=== PATIENT | female | born 1950 | race Caucasian/White ===

== ENCOUNTER 2020-06-18 17:52 | Emergency (ER) | payer MEDICARE, SELFPAY ==
[2020-06-18 18:10] VITALS: BP 114/70; PULSE 87; RESP 20; TEMP 36.1; O2SAT 98; BMI 36.8
--- NOTE | 2020-06-18 19:54 | CT_ITS ---
EXAMINATION: CT ABDOMEN AND PELVIS WITHOUT CONTRAST CLINICAL INFORMATION: Left-sided abdominal pain COMPARISON: CT abdomen pelvis 03/29/2020 TECHNIQUE: Multidetector volumetric imaging was performed from the superior aspect of the liver through the pubic symphysis. Sagittal and coronal reformatted images were obtained on the technologist's workstation. This CT examination was performed using dose optimization techniques as appropriate, variously including the following: *Automated exposure control *Adjustment of mA and/or kV according to patient size (this includes techniques or standardized protocols for targeted exams where dose is matched to indication/reason for exam; i.e. extremities or head) *Use of iterative reconstruction technique DLP: 831 mGy-cm FINDINGS: LUNG BASES: The visualized lung bases are unremarkable. There is a large hiatal hernia LIVER, GALLBLADDER, AND BILIARY TREE: The liver is normal in size, shape, and attenuation. No focal hepatic lesion or biliary ductal dilatation is present. The gallbladder is unremarkable with no evidence of radiopaque gallstones, gallbladder wall thickening, or obvious pericholecystic inflammatory changes. PANCREAS: Unremarkable. SPLEEN: Unremarkable. ADRENAL GLANDS: Unremarkable. KIDNEYS AND URETERS: The kidneys are normal in size, shape, and attenuation. No hydronephrosis, hydroureter, or calculi seen. No perinephric stranding. 1.5 cm cortical cyst lower pole left kidney BLADDER: Unremarkable. GASTROINTESTINAL TRACT: There are scattered diverticula of the colon. There is no diverticulitis. There is no bowel wall thickening /edema. There is no bowel obstruction. There is a moderate to large volume of stool in the colon. The appendix is normal . The small bowel loops are unremarkable. There is a large hiatal hernia. ABDOMINAL WALL: No significant hernia is appreciated. LYMPH NODES: Normal. VASCULAR: Atherosclerotic vascular calcifications of aorta and iliac arteries. PELVIC VISCERA: The pelvis is obscured by streak artifact from bilateral. OSSEOUS STRUCTURES: Bilateral hip replacement. Multilevel degenerative spondylosis of the spine. CT/CT abdomen pelvis wo con IMPRESSION: No acute abnormality CT scan abdomen pelvis.
[2020-06-18 20:00] VITALS: BP 127/72; PULSE 64; RESP 18; TEMP 36.9; O2SAT 96
--- NOTE | 2020-06-18 20:05 | ED_ITS ---
HPI - Abdominal Pain General Chief Complaint: Abdominal Pain Stated Complaint: vomiting ,abdominal pain Time Seen by Provider: 06/18/20 19:54 Source: patient Mode of arrival: ambulatory Limitations: no limitations History of Present Illness HPI narrative: This is a 70-year-old female with chronic history of left-sided abdominal pain, patient had a recent colonoscopy by Dr. Doshi which showed colonic polyps, patient stated that the pain is progressively getting worse over the last 2 days patient is unable to eat solid foods feel is not passing through her left side of her colon and patient reported had multiple episodes of vomiting. Patient had recent colonoscopy in March 01 of this year, patient also had upper endoscopy earlier this year which is consistent with hiatal hernia. Patient describes the pain as constant with fluctuation wax in wean pattern, describe it as a pressure on her left side of her abdomen, food making it worse, nothing relieves the pain except not eating, pain has no radiation, described it as moderate at 5/10, associated sometimes with vomiting. Related Data Previous Rx's Medication Instructions Recorded ondansetron HCl [Zofran] 4 mg PO Q8H PRN #10 tab 06/18/20 Allergies Allergy/AdvReac Type Severity Reaction Status Date / Time Digitalis Glycosides Allergy Severe HYPOTENSION Verified 06/18/20 20:32 [DIGITALIS GLYCOSIDES] oxycodone [OXYCODONE] Allergy Severe SEVERE Verified 06/18/20 20:32 VOMITING latex [LATEX] Allergy Intermediate RASH Verified 06/18/20 20:32 Review of Systems Review of Systems All other systems are reviewed and are negative Constitutional: Reports as per HPI and Reports no additional constitutional complaints Eyes: Reports as per HPI and Reports no additional eye complaints Reports system reviewed and no additional complaints, except as documented Cardiovascular: Reports as per HPI and Reports no additional cardiovascular complaints Respiratory: Reports as per HPI and Reports no additional respiratory complaints Gastrointestinal: Reports as per HPI and Reports no additional gastrointestinal complaints Genitourinary: Reports no additional female genitourinary complaints Musculoskeletal: Reports no additional musculoskeletal complaints Skin/Breast: Reports system reviewed and no additional complaints, except as docu Psychiatric: Reports no additional psychiatric complaints Endocrine: Reports no additional endocrine complaints Hematologic/Lymphatic: Reports no additional hematologic/lymphatic complaints Allergic/Immunologic: Reports no additional allergic/immunologic complaints Reports system reviewed and no additional complaints, except as documented and Reports Abnormal speech present Physical Exam Vital Signs: Vital Signs: Last Vital Signs Temp 98.4 F 06/18/20 20:00 Pulse 64 06/18/20 20:00 Resp 18 06/18/20 20:00 BP 127/72 06/18/20 20:00 Pulse Ox 96 06/18/20 20:00 Body Mass Index 36.8 Vital signs have been reviewed as normal and appeared to be correct. Blood pressure normal. Heart rate normal. Respiration rate normal. Temperature normal. Oxygen saturation normal. Appearance: Alert. Oriented X3. No acute distress. Head: Normal external exam. Normocephalic. Atraumatic. No Bailey signs noted. No raccoon eyes noted Eyes: PERRLA. EOMI. Conjunctiva and sclera normal. Eyelids normal. ENT: EAC normal. TM's Normal. Pharynx normal. Uvula midline. Moist mucous membranes. No trismus noted. No drooling noted. No muffled voice noted. Neck: Normal inspection. Neck supple. FROM. No adenopathy. Thyroid Normal. No meningeal signs. No neck mass noted. CVS: Normal heart rate and rhythm. Heart sound normal. No murmurs noted. Pulses normal throughout. Respiratory: No respiratory distress. Painless inspiration. Breath sounds normal. No wheezes/rales/rhonchi noted. Chest nontender. No accessory muscle usage noted or decreased air movement noted. Abdomen: Soft and nontender. Bowel sounds normal in all 4 quadrants. No distention noted. No organomegaly noted. No visible injury noted. Back: No CVA tenderness. Full range of motion noted. Skin: Skin warm and dry. Normal skin color. Normal skin turgor. No rashes/lesions/lacerations noted. Extremities: No lower extremity edema. Extremities exhibit normal range of motion. Extremities nontender. Neuro: Oriented X 3. No motor deficit. No sensory deficit. Reflexes normal. Course Course Course Narrative: 70-year-old female with history of chronic left abdominal pain patient has been following with Dr. Doshi (GI) patient had both upper and lower endoscopy with no causes of the abdominal pain, patient presented with 2 days worsening of her abdominal pain. Will consider repeat CT of the abdomen pelvis rule out acute finding, will check labs, IV fluid, antiemetic medication, reassess. MDM - Abdominal Pain [facility] Narrative Medical decision making narrative: Acute on chronic abdominal pain, patient had extensive outpatient workup with Dr. Doshi including upper and lower endoscopy, patient today had a CT of the abdomen pelvis which showed no acute pathology, stable labs. Stable vital sign will discharge the patient to follow- up with Dr. Doshi patient was instructed to drink plenty of fluids. Lab Data Attestation: I reviewed the patient's lab results. Result diagrams: 06/18/20 20:13 06/18/20 20:13 Labs: Lab Results 06/18/20 06/18/20 06/18/20 Range/Units 20:13 20:13 20:13 WBC 5.0 (4.8-10.8) X10*3/uL RBC 4.94 (4.20-5.50) X10*6/uL Hgb 13.0 (12.0-16.0) g/dl Hct 41.0 (37-47) % MCV 83.0 (80-98) fL MCH 26.3 L (27.0-33.0) pg MCHC 31.7 (31.0-35.0) g/dl RDW 16.3 H (11.0-16.0) % Plt Count 222 (160-400) X10*3/uL MPV 11.2 (9.4-12.3) fL Immature Gran % (Auto) 0.2 (0.0-0.4) % Neut % (Auto) 54.2 (45-73) % Lymph % (Auto) 30.1 (20-40) % [place] % (Auto) 14.3 H (2-11) % Eos % (Auto) 0.8 (0-4) % Baso % (Auto) 0.4 (0-2) % Lymph # (Auto) 1.5 (1.2-4.9) X10*3/uL [place] # (Auto) 0.7 (0.1-1.2) X10*3/uL Eos # (Auto) 0.0 (0.0-0.4) X10*3/uL Baso # (Auto) 0.0 (0.0-0.2) X10*3/uL Abs Immat Gran (auto) 0.01 (0.00-0.03) X10*3/uL Absolute Neuts (auto) 2.7 (2.0-8.3) X10*3/uL Absolute Nucleated RBC 0.000 (0.0-0.012) X10*3/uL Nucleated RBC % (auto) 0.0 (0.0-0.2) /100WBC Sodium 136 (135-145) mmol/L Potassium 4.1 (3.3-5.1) mmol/l Chloride 101 (96-108) mmol/L Carbon Dioxide 23 (22-29) mmol/L Anion Gap 16 (12-20) BUN 13 (9-16) mg/dL Creatinine 0.89 (0.5-1.4) mg/dL Estim Creat Clear Calc 72.8 Estimated GFR > 60 Random Glucose 93 (60-115) mg/dL Calcium 8.8 (8.4-10.2) mg/dL Total Bilirubin 0.7 (0.0-1.0) mg/dL Direct Bilirubin 0.2 (0.0-0.5) mg/dL AST 22 (5-31) U/L ALT 13 (0-31) U/L Alkaline Phosphatase 71 (39-117) U/L Troponin I High Sens 4.0 (<3.5-17.0) ng/L Total Protein 7.0 (6.5-8.0) g/dL Albumin 3.9 (3.5-5.0) g/dL Lipase 17 (8-78) U/L Urine Color Urine Appearance Urine pH (5.0-8.0) Ur Specific [place] (1.005-1.025) Urine Protein (NEG-TRACE) MG/DL Urine Glucose (UA) (NEG) MG/DL Urine Ketones (NEG) MG/DL Urine Blood (NEG) Urine Nitrite (NEG) Ur Leukocyte Esterase (NEG) 06/18/20 Range/Units 21:40 WBC (4.8-10.8) X10*3/uL RBC (4.20-5.50) X10*6/uL Hgb (12.0-16.0) g/dl Hct (37-47) % MCV (80-98) fL MCH (27.0-33.0) pg MCHC (31.0-35.0) g/dl RDW (11.0-16.0) % Plt Count (160-400) X10*3/uL MPV (9.4-12.3) fL Immature Gran % (Auto) (0.0-0.4) % Neut % (Auto) (45-73) % Lymph % (Auto) (20-40) % [place] % (Auto) (2-11) % Eos % (Auto) (0-4) % Baso % (Auto) (0-2) % Lymph # (Auto) (1.2-4.9) X10*3/uL [place] # (Auto) (0.1-1.2) X10*3/uL Eos # (Auto) (0.0-0.4) X10*3/uL Baso # (Auto) (0.0-0.2) X10*3/uL Abs Immat Gran (auto) (0.00-0.03) X10*3/uL Absolute Neuts (auto) (2.0-8.3) X10*3/uL Absolute Nucleated RBC (0.0-0.012) X10*3/uL Nucleated RBC % (auto) (0.0-0.2) /100WBC Sodium (135-145) mmol/L Potassium (3.3-5.1) mmol/l Chloride (96-108) mmol/L Carbon Dioxide (22-29) mmol/L Anion Gap (12-20) BUN (9-16) mg/dL Creatinine (0.5-1.4) mg/dL Estim Creat Clear Calc Estimated GFR Random Glucose (60-115) mg/dL Calcium (8.4-10.2) mg/dL Total Bilirubin (0.0-1.0) mg/dL Direct Bilirubin (0.0-0.5) mg/dL AST (5-31) U/L ALT (0-31) U/L Alkaline Phosphatase (39-117) U/L Troponin I High Sens (<3.5-17.0) ng/L Total Protein (6.5-8.0) g/dL Albumin (3.5-5.0) g/dL Lipase (8-78) U/L Urine Color YELLOW Urine Appearance CLEAR Urine pH 6.0 (5.0-8.0) Ur Specific [place] 1.020 (1.005-1.025) Urine Protein NEG (NEG-TRACE) MG/DL Urine Glucose (UA) NEG (NEG) MG/DL Urine Ketones NEG (NEG) MG/DL Urine Blood NEG (NEG) Urine Nitrite NEG (NEG) Ur Leukocyte Esterase NEG (NEG) Imaging Data CT scan - abdomen: Radiologist's impression: No acute pathology. Discharge Plan Discharge Clinical Impression: Abdominal pain, chronic, left upper quadrant Patient Disposition: Home, Self-Care Instructions: Abdominal Pain (ED) Prescriptions: New ondansetron HCl [Zofran] 4 mg tablet 4 mg PO Q8H PRN (Reason: nausea and vomiting) Qty: 10 RF: 0 Referrals: Enzo Doshi [Physician] - 2 weeks Sabine Lora MD [Primary Care Provider] - 2 days [facility] Past Medical History Medical History Hypercholesteremia Hypertension Irritable bowel Social History Social History Alcohol intake: never Smoked in Last 30 Days: No Use of substances other than those prescribed or required for medical reasons: No Advance Directives: No Advance Directives Information Provided: Yes
[2020-06-18] MEDS: 0.9 % Sodium Chloride 500 ML 999 ML IVCONT ×2 (20:16→20:17)
[2020-06-18 20:18] LABS: MANUAL DIFF FLAG NO
[2020-06-18 20:21] LABS: Basophils Percent Auto 0.4 % (0-2); Eosinophils Percent Auto 0.8 % (0-4); Imm Gran Abs Auto 0.01 X10*3/uL (0.00-0.03); Imm Gran Pct Auto 0.2 % (0.0-0.4); Lymphocytes Absolute Auto 1.5 X10*3/uL (1.2-4.9); Lymphocytes Percent Auto 30.1 % (20-40); Mean Corpuscular HGB Conc 31.7 g/dl (31.0-35.0); Mean Corpuscular Hemoglobin 26.3 pg (27.0-33.0); Mean Platelet Volume 11.2 fL (9.4-12.3); Monocytes Absolute Auto 0.7 X10*3/uL (0.1-1.2); Monocytes Percent Auto 14.3 % (2-11); Neutrophils Absolute Auto 2.7 X10*3/uL (2.0-8.3); Neutrophils Percent Auto 54.2 % (45-73); Platelet Count 222 X10*3/uL (160-400); Red Blood Count 4.94 X10*6/uL (4.20-5.50); Red Cell Distribution Width 16.3 % (11.0-16.0)
[2020-06-18] MEDS: Magnesium Hydrox/Alum Hydrox 30 ML ORAL.SUSP PO (20:26)
[2020-06-18 20:45] LABS: Alanine Aminotransferase 13 U/L (0-31); Albumin Level 3.9 g/dL (3.5-5.0); Alkaline Phosphatase 71 U/L (39-117); Anion Gap 16 (12-20); Aspartate Amino Transferase 22 U/L (5-31); Bilirubin Direct 0.2 mg/dL (0.0-0.5); Bilirubin Total 0.7 mg/dL (0.0-1.0); Blood Urea Nitrogen 13 mg/dL (9-16); Calcium 8.8 mg/dL (8.4-10.2); Carbon Dioxide 23 mmol/L (22-29); Chloride 101 mmol/L (96-108); Creatinine Clr Calc Pharmacy 72.8; Estimated Glomerular Filt Rate > 60; Glucose Random 93 mg/dL (60-115); Lipase 17 U/L (8-78); Potassium 4.1 mmol/l (3.3-5.1); Sodium 136 mmol/L (135-145)
[2020-06-18 21:49] LABS: Glucose Urine UA NEG (NEG); Leukocyte Esterase Urine NEG (NEG); Nitrite Urine NEG (NEG); Urine Blood NEG (NEG); Urine Ketones NEG (NEG); Urine Protein NEG (NEG-TRACE)
[2020-06-18 21:51] LABS: Appearance Urine CLEAR; Color Urine YELLOW
[2020-06-18 22:00] VITALS: BP 133/73; PULSE 70; RESP 18; TEMP 36.9; O2SAT 95
== END 2020-06-18 22:51 | disposition home or self-care (01) ==
PROVIDERS: Emergency Provider Emergency Medicine; PCP Internal Medicine
DX: R10.12 Left upper quadrant pain (principal); Z79.899 Other long term (current) drug therapy
CPT/HCPCS: 36415; 74176; 80048; 80076; 81003; 83690; 84484; 85025; 99284

== ENCOUNTER → 2020-06-27 08:26 | Outpatient (REF) | payer MEDICARE, SELFPAY ==
--- NOTE | 2020-06-27 | NM_ITS ---
EXAMINATION: BILIARY TRACT IMAGING STUDY WITH CCK CLINICAL INFORMATION: Epigastric pain.. COMPARISON: None. TECHNIQUE: Serial gamma scintillation camera images were obtained over the abdomen for a total observation period of 90 minutes following the intravenous administration of 5.0 mCi Tc-99m Mebrofenin. FINDINGS: There is good concentration of activity in the liver by 5 minutes post injection. Biliary activity is visualized by 15 minutes. The gallbladder is well visualized by 45 minutes. Small bowel is well visualized by 25 minutes. At 60 minutes post radiopharmaceutical injection, a 30-minute infusion of 2.1 micrograms Sincalide was then begun and an additional 40 minutes of images were obtained. There is good emptying of the gallbladder. By the end of the study there is good clearance of activity from the liver and visualization of diffuse small bowel activity. The calculated gallbladder ejection fraction is 72% (normal gallbladder ejection fraction is greater than 35%). NM/NM hepatobiliary w pharm IMPRESSION: Visualization of the gallbladder is evidence of a patent cystic duct and strong evidence against the diagnosis of acute cholecystitis. The common bile duct is patent. Gallbladder emptying and ejection fraction are normal. Liver function appears normal.
== END ==
LOC: HO.NUCMED 08:26
PROVIDERS: PCP Internal Medicine; Visit Provider Internal Medicine
DX: R10.13 Epigastric pain (principal)
CPT/HCPCS: 78227; A9537; J2805

== ENCOUNTER 2021-02-04 09:56 | Day surgery (SDC) | payer MEDICARE, SELFPAY ==
--- NOTE | 2021-02-03 09:06 | P.CONAN_ITS ---
HPI - Anesthesia Eval Consult details Narrative: 70yo F for [facility] Past Medical History Medical History Anxiety Asthma-COPD overlap syndrome Breast cancer GERD (gastroesophageal reflux disease) Hx of pulmonary embolus Hypercholesteremia Hypertension Irritable bowel JORGE (obstructive sleep apnea) RLS (restless legs syndrome) Thoracic outlet syndrome Surgical History Surgical History H/O lumpectomy S/P hip replacement S/P partial hysterectomy S/P tonsillectomy Social History Social History (Updated 02/03/21 @ 09:09 by Jade Melendez) Alcohol intake: never Patient Tobacco Use Status: Former Tobacco user Meds Allergies Allergy/AdvReac Type Severity Reaction Status Date / Time Digitalis Glycosides Allergy Severe HYPOTENSION Verified 02/04/21 10:08 [DIGITALIS GLYCOSIDES] oxycodone [OXYCODONE] Allergy Severe SEVERE Verified 02/04/21 10:08 VOMITING latex [LATEX] Allergy Intermediate RASH Verified 02/04/21 10:08 Home Medications Medication Instructions Recorded Confirmed Last Taken Type amlodipine 1 tab PO DAILY 02/03/21 02/03/21 02/04/21 07:30 History atorvastatin 1 tab PO DAILY 02/03/21 02/03/21 Unknown History dicyclomine 1 tab PO 02/03/21 02/03/21 Unknown History lisinopril-hydrochlorothiazide 1 tab PO DAILY 02/03/21 02/03/21 Unknown History lorazepam 1 tab PO DAILY PRN 02/03/21 02/03/21 Unknown History paroxetine HCl 1.5 tab PO DAILY 02/03/21 02/03/21 Unknown History omeprazole 1 cap PO QAM 02/04/21 02/04/21 02/04/21 07:30 History Exam Exam Date and Time: February 03, [id number] Assessment and Plan Assessment Anesthesia Assessment: Chart Reviewed
[2021-02-04 10:19] VITALS: BP 130/78; PULSE 81; RESP 18; TEMP 36.6; O2SAT 97; BMI 36.0
[2021-02-04] MEDS: Lactated Ringers 1,000 ML 100 ML IVCONT (10:27)
--- NOTE | 2021-02-04 10:28 | MHC.SHP ---
Pre-Procedural Eval Section A Date of Service: 02/04/21 The patient is an INPATIENT: No Changes since office visit: No Cold of Flu in the past 2 weeks, No New Medical Problems, No Changes in Medication and No Patient answered all questions The History & Physical has been completed within 30 days and I have reviewed it.: Yes Section B Chief Complaint: abdominal pain Allergies: Allergies Allergy/AdvReac Type Severity Reaction Status Date / Time Digitalis Glycosides Allergy Severe HYPOTENSION Verified 02/04/21 10:08 [DIGITALIS GLYCOSIDES] oxycodone [OXYCODONE] Allergy Severe SEVERE Verified 02/04/21 10:08 VOMITING latex [LATEX] Allergy Intermediate RASH Verified 02/04/21 10:08 Plan I have reviewed the history and physical and performed a pertinent physical examination on my patient. No changes have occurred unless specified.
[2021-02-04 10:52] VITALS: BP 107/69; PULSE 69; RESP 16; TEMP 36.9; O2SAT 93
--- NOTE | 2021-02-04 11:03 | P.BOP_ITS ---
Brief Operative Note Date of Service: 02/04/21 Pre-op diagnosis: abd pain Post-op diagnosis: same (hiatla hernia, radha erosions) Surgeon: Enzo Doshi Anesthesia: MAC Was an Tempering Kiln Tender used for this Procedure?: No Estimated blood loss (mL): 5 Pathology: other (gastric biopsies) Condition: stable Disposition: PACU
[2021-02-04 11:06] VITALS: BP 112/66; PULSE 61; RESP 16; TEMP 36.9; O2SAT 95
--- NOTE | 2021-02-04 11:20 | HO.POSTANES ---
Post Anesthesia Evaluation Post Anesthesia Evaluation Vital Signs: Vital Signs Temp Pulse Resp BP Pulse Ox 02/04/21 11:06 98.5 F 61 16 112/66 95 02/04/21 10:52 98.5 F 69 16 107/69 93 02/04/21 10:19 97.8 F 81 18 130/78 97 Anesthesia: Monitored Mental Status: Awake Pain Control: Satisfactory Nausea/Vomiting: None Hydration: Adequate Anesthesia-Related Issues: No Anes. Related Issues
--- NOTE | 2021-02-04 20:43 | OP_ITS ---
SURGEON: Enzo Doshi MD INDICATIONS: Abdominal pain. PREOPERATIVE DIAGNOSIS: POSTOPERATIVE DIAGNOSIS: PROCEDURE PERFORMED: Upper endoscopy with biopsy. ESTIMATED BLOOD LOSS: COMPLICATIONS: ANESTHESIA: ASSISTANTS: SPECIMENS: MEDICATIONS: Monitored anesthesia care. DESCRIPTION OF PROCEDURE: History and physical performed. The risks and benefits of the procedure were explained to the patient, and informed consent was obtained. The patient was placed in the left lateral decubitus position. The Olympus video gastroscope was introduced into the esophagus, stomach, and duodenum. Examination was performed, and the scope was removed. She tolerated the procedure well and was taken to recovery area in stable condition. FINDINGS: Esophagus: The esophagus was normal. There was no esophagitis. The EG junction was present at 32 cm. Stomach: The stomach showed a large hiatal hernia measuring approximately 8 to 10 cm with multiple linear erosions consistent with Juanjose erosions. Biopsies were obtained from the abnormal mucosa. Biopsies were also obtained from the antrum. Duodenum: The bulb and second portion were normal. IMPRESSION: 1. Hiatal hernia. 2. Juanjose erosions. RECOMMENDATIONS: 1. Follow up the biopsy results. 2. Continue proton pump inhibitor. 3. Referral for a repair of hiatal hernia. MD NANI Olivares/EDDI / [id number]
== END 2021-02-04 11:39 | disposition home or self-care (01) ==
PROVIDERS: PCP Internal Medicine; Visit Provider Internal Medicine Gastroenterology
PROC: 0DJ08ZZ Inspection of Upper Intestinal Tract, Via Natural or Artificial Opening Endoscopic (ICD-10-PCS; CPT 43235; principal; 2021-02-04 11:00)
DX: K21.9 Gastro-esophageal reflux disease without esophagitis (principal); K44.9 Diaphragmatic hernia without obstruction or gangrene; K25.9 Gastric ulcer, unspecified as acute or chronic, without hemorrhage or perforation; J44.9 Chronic obstructive pulmonary disease, unspecified; I10 Essential (primary) hypertension; F41.9 Anxiety disorder, unspecified; G47.33 Obstructive sleep apnea (adult) (pediatric); G54.0 Brachial plexus disorders; Z85.3 Personal history of malignant neoplasm of breast; Z79.899 Other long term (current) drug therapy; Z87.891 Personal history of nicotine dependence; Z88.8 Allergy status to other drugs, medicaments and biological substances; Z91.040 Latex allergy status
CPT/HCPCS: 43239; 88305; 88342

== ENCOUNTER → 2021-03-07 09:52 | Outpatient (BNVA) | payer MEDICARE, SELFPAY | PROVIDERS: PCP Internal Medicine; Visit Provider Surgery | DX: K44.0 Diaphragmatic hernia with obstruction, without gangrene (principal); Z87.891 Personal history of nicotine dependence; Z79.899 Other long term (current) drug therapy | CPT/HCPCS: 99212 ==

== ENCOUNTER 2021-03-13 08:47 | Outpatient (REF) | payer MEDICARE, SELFPAY ==
--- NOTE | ~2021-03-13 | FL_ITS ---
EXAMINATION: FL BARIUM SWALLOW CLINICAL INFORMATION: Diaphragmatic hernia with obstruction. COMPARISON: None. TECHNIQUE: Barium swallow examination is performed using fluoroscopic evaluation in addition to multiple fluoroscopic spot views. The patient is imaged both upright and prone and using both thick and thin sulfate along with effervescent granules. Fluoroscopy time: 2.0 minutes DAP: 24.967 Gy-cm2 Images: 51 FINDINGS: Following oral administration of thick barium and effervescent granules in upright view, there is slow propagation of bolus from the oral cavity, through the pharynx and esophagus and into the hiatal hernia. There is diminished peristalsis with secondary and tertiary peristalsis seen in the distal esophagus. Patient has a large incarcerated hiatal hernia. On placing patient prone and with oral administration of thin barium, there is normal passage of bolus from the oral cavity through the pharynx and esophagus and into the stomach. There is mild gastroesophageal reflux. The mucosal pattern is grossly unremarkable. FL/FL barium swallow IMPRESSION: Large incarcerated hiatal hernia with mild gastroesophageal reflux. 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
== END 2021-03-13 08:48 | disposition home or self-care (01) ==
LOC: HO.XRAY 08:47
PROVIDERS: PCP Internal Medicine; Visit Provider Surgery
DX: K44.0 Diaphragmatic hernia with obstruction, without gangrene (principal)
CPT/HCPCS: 74220

== ENCOUNTER 2022-11-05 07:50 | Outpatient (REF) | payer MEDICARE, SELFPAY ==
--- NOTE | ~2022-11-05 | FL_ITS ---
EXAMINATION: XR FLUOROSCOPY UPPER GI WITH AIR CLINICAL INFORMATION: Difficulty swallowing. Previous history of incarcerated hiatal hernia and surgery several years ago. COMPARISON: Upper GI air-contrast study 03/13/2021 TECHNIQUE: Routine upper GI air-contrast study was performed following oral administration of thick barium and effervescent granules. FINDINGS: Following oral administration of thick barium and effervescent granules there is normal propagation of bolus from the oral cavity through the pharynx into esophagus without obstruction or narrowing. There is diffuse irregularity involving the distal esophagus suspicious for esophagitis. Again visualized, is a recurrent small to moderate size sliding hiatal hernia. The mucosal pattern of the stomach, duodenal bulb and the sweep is normal. The course and caliber of the stomach and duodenum is normal. Mild gastroesophageal reflux was noted. FLUOROSCOPY TIME: 1.4 minutes. DOSE AREA PRODUCT: 159 uGy-m2 (microgray-meter squared). FL/FL upper GI w air IMPRESSION: Following surgery, there is recurrent moderate size hiatal hernia with moderate gastroesophageal reflux. There is mucosal irregularity along the distal anterior and posterior esophagus suggestive of esophagitis.
== END 2022-11-05 07:51 | disposition home or self-care (01) ==
LOC: HO.XRAY 07:50
PROVIDERS: PCP Internal Medicine; Visit Provider Internal Medicine Gastroenterology
DX: R11.10 Vomiting, unspecified (principal)
CPT/HCPCS: 74246

== ENCOUNTER 2023-04-14 12:43 | Day surgery (SDC) | payer MEDICARE, SELFPAY ==
--- NOTE | 2023-04-13 10:40 | P.CONAN_ITS ---
Documented by User: Jade Melendez NP 04/13/23 10:43 HPI - Anesthesia Eval Consult details Narrative: 73yo F for Upper Endoscopy Coumadin for PE Hx paraesophageal hernia repair PMFSH Active Problems Active Problems: All Active Problems (Updated 03/07/21 @ 11:41 by Valeri Leggett MD) Incarcerated paraesophageal hernia (Acute) Hiatal hernia without gangrene and obstruction (Acute) Past Medical History Medical History Anxiety Asthma-COPD overlap syndrome Breast cancer, left breast GERD (gastroesophageal reflux disease) Hiatal hernia without gangrene and obstruction Hx of pulmonary embolus Hypercholesteremia Hypertension Irritable bowel Obesity JORGE (obstructive sleep apnea) RLS (restless legs syndrome) Thoracic outlet syndrome Tubular adenoma of colon Surgical History Surgical History History of bilateral hip replacements History of colonoscopy History of endoscopy History of lumpectomy of left breast History of partial hysterectomy History of tonsillectomy Social History Social History Alcohol intake: never Patient Tobacco Use Status: Former Tobacco user Use of substances other than those prescribed or required for medical reasons: No Are you DNR?: No Advance Directives: No Advance Directives Information Provided: Yes Meds Allergies Allergy/AdvReac Type Severity Reaction Status Date / Time Digitalis Glycosides Allergy Severe HYPOTENSION Verified 02/04/21 10:08 [DIGITALIS GLYCOSIDES] oxycodone [OXYCODONE] Allergy Severe SEVERE Verified 02/04/21 10:08 VOMITING latex [LATEX] Allergy Intermediate RASH Verified 02/04/21 10:08 nitroglycerin AdvReac Hypotension Verified 04/14/23 13:23 Home Medications Medication Instructions Recorded Confirmed Last Taken Type amlodipine 10 mg tablet 1 tab PO DAILY 02/03/21 04/14/23 02/04/21 07:30 History atorvastatin 20 mg tablet 1 tab PO DAILY 02/03/21 04/14/23 Unknown History lisinopril 20 1 tab PO DAILY 02/03/21 04/14/23 Unknown History mg-hydrochlorothiazide 25 mg tablet lorazepam 1 mg tablet 2 tab PO DAILY PRN Anxiety 02/03/21 04/14/23 Unknown History paroxetine HCl 10 mg tablet 1.5 tab PO DAILY 02/03/21 04/14/23 Unknown History omeprazole 20 mg capsule,delayed 1 cap PO QAM 02/04/21 04/14/23 02/04/21 07:30 History release warfarin 5 mg tablet 5 - 7.5 mg PO DAILY 04/13/23 04/14/23 Unknown History cholecalciferol (vitamin D3) 25 25 mcg PO DAILY 04/14/23 04/14/23 Unknown History mcg (1,000 unit) chewable tablet (Vitamin D3) ropinirole 0.5 mg tablet mg PO 04/14/23 04/14/23 Unknown History Exam Exam Date and Time: April 13, 2023 1040 Assessment and Plan Assessment Anesthesia Assessment: Chart Reviewed Documented by User: Pebbles Hough MD 04/14/23 14:32 [facility] Past Medical History Medical History Anxiety Asthma-COPD overlap syndrome Breast cancer, left breast GERD (gastroesophageal reflux disease) Hiatal hernia without gangrene and obstruction Hx of pulmonary embolus Hypercholesteremia Hypertension Irritable bowel Obesity JORGE (obstructive sleep apnea) RLS (restless legs syndrome) Thoracic outlet syndrome Tubular adenoma of colon Surgical History Surgical History History of bilateral hip replacements History of colonoscopy History of endoscopy History of lumpectomy of left breast History of partial hysterectomy History of tonsillectomy History of Problems with Anesthesia: Yes Social History Social History Alcohol intake: never Patient Tobacco Use Status: Former Tobacco user Use of substances other than those prescribed or required for medical reasons: No Are you DNR?: No Advance Directives: No Advance Directives Information Provided: Yes Meds Allergies Allergy/AdvReac Type Severity Reaction Status Date / Time Digitalis Glycosides Allergy Severe HYPOTENSION Verified 02/04/21 10:08 [DIGITALIS GLYCOSIDES] oxycodone [OXYCODONE] Allergy Severe SEVERE Verified 02/04/21 10:08 VOMITING latex [LATEX] Allergy Intermediate RASH Verified 02/04/21 10:08 nitroglycerin AdvReac Hypotension Verified 04/14/23 13:23 Home Medications Medication Instructions Recorded Confirmed Last Taken Type amlodipine 10 mg tablet 1 tab PO DAILY 02/03/21 04/14/23 02/04/21 07:30 History atorvastatin 20 mg tablet 1 tab PO DAILY 02/03/21 04/14/23 Unknown History lisinopril 20 1 tab PO DAILY 02/03/21 04/14/23 Unknown History mg-hydrochlorothiazide 25 mg tablet lorazepam 1 mg tablet 2 tab PO DAILY PRN Anxiety 02/03/21 04/14/23 Unknown History paroxetine HCl 10 mg tablet 1.5 tab PO DAILY 02/03/21 04/14/23 Unknown History omeprazole 20 mg capsule,delayed 1 cap PO QAM 02/04/21 04/14/23 02/04/21 07:30 History release warfarin 5 mg tablet 5 - 7.5 mg PO DAILY 04/13/23 04/14/23 Unknown History cholecalciferol (vitamin D3) 25 25 mcg PO DAILY 04/14/23 04/14/23 Unknown History mcg (1,000 unit) chewable tablet (Vitamin D3) ropinirole 0.5 mg tablet mg PO 04/14/23 04/14/23 Unknown History Exam Airway Mallampati Class: II (edentulous) TM Dist: >3cm Neck ROM: Full Denture: Upper and Lower Loose/Missing/Broken Teeth: Yes, Upper and Lower Heart: RRR Lungs: CTA Assessment and Plan Assessment Anesthesia Assessment: Anesthesia Plan Discussed Final Anesthetic Review History of Problems with Anesthesia: Yes NPO: Yes ASA Class: III Final Preanesthetic Review: Meds/Allgs Chart Reviewed, Consent Obtained/Reviewed and Anes Risks/Benef Reviewed Patient Risk: Intermediate Procedure Risk: Intermediate Anesthetic Plan Anesthetic Plan: MAC: Disposition: Standard PACU
[2023-04-14 13:29] VITALS: BMI 36.8
[2023-04-14 13:33] VITALS: BP 129/76; PULSE 77; RESP 18; TEMP 36.3; O2SAT 96; BMI 36.8
[2023-04-14 13:33] LABS: INTERNATIONAL NORM RATIO 0.9 (0.9-1.1)
[2023-04-14] MEDS: Lactated Ringers 1,000 ML 100 ML IVCONT (13:56)
--- NOTE | 2023-04-14 14:46 | MHC.SHP ---
Pre-Procedural Eval Section A Date of Service: 04/14/23 Section B Chief Complaint: Other dysphagia,reflux disease Details of Present Illness: see H*P no changes Relevant Family History (Specify if Yes): No Relevant Social History: None Present Medications: see Short Stay Collaborative assessment Medical History: No relevant PMH History of Previous Operations: No relevant previous surgery Allergies: Allergies Allergy/AdvReac Type Severity Reaction Status Date / Time Digitalis Glycosides Allergy Severe HYPOTENSION Verified 02/04/21 10:08 [DIGITALIS GLYCOSIDES] oxycodone [OXYCODONE] Allergy Severe SEVERE Verified 02/04/21 10:08 VOMITING latex [LATEX] Allergy Intermediate RASH Verified 02/04/21 10:08 nitroglycerin AdvReac Hypotension Verified 04/14/23 13:23 Review of Systems Sugical H&P ROS: Negative: Constitution, Cardiovascular, Respiratory, Neurological, Psychiatric, Hem-Onc, Allergic/Immunologic, Gastrointestinal, Genitourinary, Musculoskeletal, Integumentary, Endocrine and Eyes/Ears/Nose/Throat Exam Surgical H&P Exam: Normal: HEENT, Normal: Heart, Normal: Lungs, Normal: Extremities, Normal: Abdomen, Normal: Skin and Normal: Neurological Plan Diagnosis/Plan: Unchanged I have reviewed the history and physical and performed a pertinent physical examination on my patient. No changes have occurred unless specified. Time Spent With Patient Time: Total time managing care of this patient today ____ minutes.
--- NOTE | 2023-04-14 15:15 | PM.OP ---
Brief Operative Note Date of Service: 04/14/23 Pre-op diagnosis: gerd dysphagia Post-op diagnosis: same Surgeon: Enzo Doshi Anesthesia: MAC Was an Information Technology Administrator used for this Procedure?: No Estimated blood loss (mL): 5 Pathology: other Condition: stable Disposition: PACU
[2023-04-14 15:17] VITALS: BP 103/49; PULSE 58; RESP 14; TEMP 36.8; O2SAT 99
[2023-04-14 15:32] VITALS: BP 108/57; PULSE 58; RESP 16; O2SAT 99
[2023-04-14 15:47] VITALS: BP 129/60; PULSE 57; RESP 16; TEMP 36.3; O2SAT 98
--- NOTE | 2023-04-14 17:59 | OP_ITS ---
DATE OF SERVICE: 04/14/2023 SURGEON: Enzo Doshi MD INDICATIONS: Dysphagia and GERD. PREOPERATIVE DIAGNOSIS: POSTOPERATIVE DIAGNOSIS: PROCEDURE PERFORMED: Upper endoscopy with biopsy. ESTIMATED BLOOD LOSS: COMPLICATIONS: ANESTHESIA: Monitored anesthesia care. ASSISTANTS: SPECIMENS: DESCRIPTION OF PROCEDURE: A history and physical was performed. The risks and benefits of the procedure were explained to the patient. Informed consent was obtained. The patient was placed in the left lateral decubitus position. The Olympus video gastroscope was introduced into the esophagus, stomach, and duodenum. Examination was performed. The scope was removed. She tolerated the procedure well and was returned to recovery area in stable condition. FINDINGS: Esophagus: The esophagus was slightly tortuous. There was a small hiatal hernia. The EG junction was slightly irregular without narrowing. There were no raised lesions or ulcerated areas. Biopsies were obtained at the EG junction at 30 cm. Stomach: The stomach was normal. There were several benign-appearing gastric polyps, but no ulceration or gastritis. Duodenum: The bulb and second portion were normal. Biopsies were obtained from the second portion of the duodenum and from the antrum of the stomach. IMPRESSION: Gastroesophageal reflux disease. RECOMMENDATION: Follow up the biopsy results. MD NANI Olivares/EDDI / [id number]
== END 2023-04-14 16:18 | disposition home or self-care (01) ==
PROVIDERS: Nurse Practitioner; PCP Internal Medicine; Visit Provider Internal Medicine Gastroenterology
PROC: 0DJ08ZZ Inspection of Upper Intestinal Tract, Via Natural or Artificial Opening Endoscopic (ICD-10-PCS; CPT 43235; principal; 2023-04-14 14:10)
DX: R13.19 Other dysphagia (principal); K21.9 Gastro-esophageal reflux disease without esophagitis; K31.7 Polyp of stomach and duodenum; K44.9 Diaphragmatic hernia without obstruction or gangrene; I10 Essential (primary) hypertension; E78.00 Pure hypercholesterolemia, unspecified; R73.03 Prediabetes; F41.1 Generalized anxiety disorder; Z85.3 Personal history of malignant neoplasm of breast; M19.90 Unspecified osteoarthritis, unspecified site; J44.9 Chronic obstructive pulmonary disease, unspecified; Z86.711 Personal history of pulmonary embolism; Z79.899 Other long term (current) drug therapy; Z79.01 Long term (current) use of anticoagulants; Z91.040 Latex allergy status; Z88.8 Allergy status to other drugs, medicaments and biological substances; Z87.891 Personal history of nicotine dependence
CPT/HCPCS: 43239; 36415; 85610; 88305; 88342

== ENCOUNTER 2023-07-21 09:23 | Outpatient (REF) | payer MEDICARE, SELFPAY ==
--- NOTE | ~2023-07-21 | US_ITS ---
EXAMINATION: US ABDOMEN COMPLETE CLINICAL INFORMATION: Epigastric pain. COMPARISON: CT abdomen and pelvis 06/18/2020. MRI abdomen 05/01/2020. Ultrasound abdomen complete 01/08/2020. TECHNIQUE: Real-time imaging of the abdominal viscera. Technically limited study secondary to bowel gas and body habitus. FINDINGS: PANCREAS: Obscured by bowel gas. ABDOMINAL AORTA: Visualized aorta is normal in caliber however portions are obscured by bowel gas. INFERIOR VENA CAVA: Visualized portions are normal. LIVER: The liver is normal in size. The liver contour is normal. Increased hepatic echogenicity which can be seen in the setting of hepatic steatosis or underlying liver disease. No focal hepatic lesion. There is no intrahepatic biliary duct dilatation seen. GALLBLADDER: Normal. The gallbladder is physiologically distended without evidence of stones, sludge, polyps, wall thickening or pericholecystic fluid. COMMON BILE DUCT: Normal in caliber measuring 0.4 cm in diameter. RIGHT KIDNEY: Echogenic focus without twinkle artifact or shadowing may reflect a vascular reflector. No definite nephrolithiasis. No hydronephrosis or focal parenchymal lesions. The kidney measures 12.5 cm in maximum dimension. LEFT KIDNEY: Benign-appearing renal cysts measuring up to 3.2 cm. No follow-up imaging is recommended. No hydronephrosis. Echogenic focus without twinkle artifact or shadowing may reflect a vascular reflector. No definite nephrolithiasis. The kidney measures 11.3 cm in maximum dimension. SPLEEN: Normal. The spleen measures 8.4 cm in maximum dimension. FREE FLUID: None. US/US abdomen complete IMPRESSION: 1. No cholelithiasis or evidence of acute cholecystitis. 2. Increased hepatic echogenicity which can be seen in the setting of hepatic steatosis or underlying liver disease.
== END 2023-07-21 09:24 | disposition home or self-care (01) ==
LOC: HO.US 09:23
PROVIDERS: PCP Internal Medicine; Visit Provider Internal Medicine Gastroenterology
DX: R10.13 Epigastric pain (principal)
CPT/HCPCS: 76700